=== PATIENT | female | born 1950 | race Caucasian/White ===

== ENCOUNTER 2019-12-03 16:40 | Emergency (ER) | payer BC, SELFPAY ==
[2019-12-03 16:46] VITALS: BP 130/62; PULSE 72; RESP 20; TEMP 37.1; O2SAT 95
--- NOTE | 2019-12-03 16:58 | ED.URI ---
HPI - URI/Sore Throat General Chief Complaint: Upper Respiratory Infection Stated Complaint: wheezing/cough/chest congestion/fever Time Seen by Provider: 12/03/19 16:58 Source: patient and RN notes reviewed History of Present Illness HPI Narrative: Patient is a 69-year-old female presents the urgent care with complaints of wheezing, chest congestion, cough, fever. Patient states that her symptoms started on and if seem to be worsening. Patient states she has had a history of pneumonia and bronchitis in the past. States that she has had episodes of shortness of breath. Denies any chest pain. States that she has been using ibuprofen and Mucinex without much relief. No other acute complaints. No acute distress noted. Patient had a plan of care. Related Data Home Medications Medication Instructions Recorded Confirmed Vitamin D3 12/03/19 aspirin [Aspir-81] 81 mg PO DAILY 12/03/19 12/03/19 fexofenadine-pseudoephedrine 1 tablet PO QAM PRN 12/03/19 12/03/19 [Kary-D 24 Hour] rosuvastatin 10 mg PO DAILY 12/03/19 12/03/19 sotalol 160 mg PO BID 12/03/19 12/03/19 Allergies Allergy/AdvReac Type Severity Reaction Status Date / Time Penicillins Allergy Unknown Dyspnea / Verified 12/03/19 16:58 SOB prednisone Allergy Unknown Agitated Verified 12/03/19 16:58 Review of Systems Review of Systems: Narrative: CONSTITUTIONAL: Reports a fever EYES: Denies visual changes, redness, or discharge. ENT: Reports of sinus congestion and rhinorrhea CARDIOVASCULAR: Denies chest pain, palpitations, or edema. RESPIRATORY: Reports of cough with intermittent dyspnea and wheezing GASTROINTESTINAL: Denies abdominal pain, nausea, vomiting, or diarrhea. GENITOURINARY: Denies dysuria or hematuria. SKIN: Denies rash or itching. MUSCULOSKELETAL: Denies back pain, joint pain, or myalgia. NEUROLOGIC: Denies headache, numbness, or weakness. [facility] Family History Family History (Updated 11/24/18 @ 15:02 by DOCTOR UNKNOWN) Mother Diabetes mellitus Cerebrovascular accident Family history of malignant neoplasm of ovary Father Family history of chronic obstructive pulmonary disease Other Family history of pancreatic cancer Social History Social History Smoking status: Never smoker Second hand tobacco smoke exposure: No Alcohol intake: current Comments At the time of my signature, I reviewed and agree with the nursing past medical, surgical, social, and family history. There is no relevant family history pertinent to the patient complaint. Exam Narrative: Exam Narrative: GENERAL: This is a well-nourished, well-developed patient, in no apparent distress. HEAD: normocephalic, atraumatic. EYES: PERRL. Sclera clear/white. Vision is grossly intact. EARS: External ears normal, auditory canals clear and without drainage, TMs normal without perforation. Hearing grossly intact. NOSE: External nose normal with no obvious nasal discharge, bilateral erythemic nares with clear rhinorrhea THROAT: Mucous membranes moist, posterior pharynx clear. Moderate postnasal drainage NECK: Neck supple CARDIOVASCULAR: Regular rate and rhythm without murmurs, gallops, or rubs. RESPIRATORY: Bilateral upper expiratory wheezes with diminished bilateral lower lung sounds SKIN: warm, intact with no suspicious lesions or rash, good texture and turgor. NEURO: awake, alert, and oriented to person, place and time. There were no obvious focal neurologic abnormalities. EXTREMITIES: No clubbing, cyanosis, or edema. Course Vital Signs Vital signs: Vital Signs Temperature 98.8 F 12/03/19 16:46 Pulse Rate 72 12/03/19 16:46 Respiratory Rate 20 12/03/19 16:46 Blood Pressure 130/62 12/03/19 16:46 Pulse Oximetry 95 12/03/19 16:46 Temperature 98.8 F 12/03/19 16:46 Pulse Rate 72 12/03/19 16:46 Respiratory Rate 20 12/03/19 16:46 Blood Pressure 130/62 12/03/19 16:46 Pulse Oximetry 95 12/03/19 16:[address] [facility]
== END 2019-12-03 17:22 | disposition home or self-care (01) ==
PROVIDERS: Emergency Provider Nurse Practitioner Family; PCP Family Medicine
DX: J40 Bronchitis, not specified as acute or chronic (principal); I48.91 Unspecified atrial fibrillation; E78.00 Pure hypercholesterolemia, unspecified; Z85.3 Personal history of malignant neoplasm of breast; Z92.21 Personal history of antineoplastic chemotherapy; Z92.3 Personal history of irradiation
CPT/HCPCS: 99213; G0463

== ENCOUNTER 2020-06-23 17:23 | Emergency (ER) | payer BC, SELFPAY ==
--- NOTE | 2020-06-23 17:27 | ED.EAR ---
HPI - Ear Problem General Chief complaint: Upper Respiratory Infection Stated complaint: dizziness/ear congestion Time Seen by Provider: 06/23/20 17:27 Source: patient and RN notes reviewed History of Present Illness HPI Narrative: Patient is a 69-year-old female who presents the urgent care with complaints of stuffy nose, ear pressure and intermittent dizziness. Patient states is been ongoing for approximately 2 weeks or longer. Patient states she has a history of sinusitis but has not had to have antibiotics for some time. Patient states that her typical Sudafed and Alexandra Pott take care of the symptoms. However patient has been using both without any relief. Patient denies of any known fevers, nausea, vomiting. Patient denies of any productive cough. No other acute complaints. No acute distress noted. Patient will plan of care. Related Data Home Medications Medication Instructions Recorded Confirmed aspirin [Aspir-81] 81 mg PO DAILY 12/03/19 06/23/20 fexofenadine-pseudoephedrine 1 tablet PO QAM PRN 12/03/19 06/23/20 [Kary-D 24 Hour] Vitamin D3 600 mg BYMOUTH DAILY 06/23/20 06/23/20 Allergies Allergy/AdvReac Type Severity Reaction Status Date / Time Penicillins Allergy Unknown Dyspnea / Verified 06/23/20 17:36 SOB Review of Systems Review of Systems: Narrative: CONSTITUTIONAL: Denies fever, chills, or sweats. EYES: Denies visual changes, redness, or discharge. ENT: Reports of nasal congestion, postnasal drainage, rhinorrhea and bilateral ear pressure CARDIOVASCULAR: Denies chest pain, palpitations, or edema. RESPIRATORY: Denies cough or dyspnea. GASTROINTESTINAL: Denies abdominal pain, nausea, vomiting, or diarrhea. GENITOURINARY: Denies dysuria or hematuria. SKIN: Denies rash or itching. MUSCULOSKELETAL: Denies back pain, joint pain, or myalgia. NEUROLOGIC: Reports of intermittent dizziness without headache, weakness or numbness All other systems reviewed are negative, except as documented in HPI. [facility] Social History Social History Smoking status: Never smoker Second hand tobacco smoke exposure: No Alcohol intake: current Substance use: never Substance use type: does not use Comments At the time of my signature, I reviewed and agree with the nursing past medical, surgical, social, and family history. There is no relevant family history pertinent to the patient complaint. Exam Narrative: Exam Narrative: GENERAL: This is a well-nourished, well-developed patient, in no apparent distress. HEAD: normocephalic, atraumatic. EYES: PERRL. Sclera clear/white. Vision is grossly intact. EARS: External ears normal, auditory canals clear and without drainage, mild fluid noted behind bilateral TMs without otitis, TMs normal without perforation. Hearing grossly intact. NOSE: External nose normal with no obvious nasal discharge, mild bilateral erythemic nares with clear rhinorrhea. THROAT: Mucous membranes moist, moderate postnasal drainage noted posterior oropharynx without erythema or edema NECK: Neck supple CARDIOVASCULAR: Regular rate and rhythm without murmurs, gallops, or rubs. RESPIRATORY: Clear to auscultation. Breath sounds equal bilaterally. No wheezes, rales, or rhonchi. SKIN: warm, intact with no suspicious lesions or rash, good texture and turgor. NEURO: awake, alert, and oriented to person, place and time. There were no obvious focal neurologic abnormalities. EXTREMITIES: No clubbing, cyanosis, or edema. Course Vital Signs Vital signs: Vital Signs Temperature 97.1 F L 06/23/20 17:39 Pulse Rate 59 L 06/23/20 17:39 Respiratory Rate 16 06/23/20 17:39 Blood Pressure 122/65 06/23/20 17:39 Pulse Oximetry 100 06/23/20 17:39 Temperature 97.1 F L 06/23/20 17:39 Pulse Rate 59 L 06/23/20 17:39 Respiratory Rate 16 06/23/20 17:39 Blood Pressure 122/65 06/23/20 17:39 Pulse Oximetry 100 06/23/20 17:39 Reviewed
[2020-06-23 17:39] VITALS: BP 122/65; PULSE 59; RESP 16; TEMP 36.2; O2SAT 100
== END 2020-06-23 17:48 | disposition home or self-care (01) ==
PROVIDERS: Emergency Provider Nurse Practitioner Family; PCP Family Medicine
DX: J32.9 Chronic sinusitis, unspecified (principal); I48.91 Unspecified atrial fibrillation; E78.00 Pure hypercholesterolemia, unspecified; Z85.3 Personal history of malignant neoplasm of breast; Z92.21 Personal history of antineoplastic chemotherapy; Z92.3 Personal history of irradiation
CPT/HCPCS: 99213; G0463

== ENCOUNTER → 2021-03-28 02:06 | Outpatient (CLI) | payer BC, SELFPAY ==
[2021-03-28 19:56] LABS: SARS-CoV-2 RNA PCR Negative
== END ==
PROVIDERS: PCP Family Medicine; Visit Provider Internal Medicine Gastroenterology
DX: Z01.812 Encounter for preprocedural laboratory examination (principal); Z20.822 Contact with and (suspected) exposure to COVID-19
CPT/HCPCS: C9803; U0003; U0005

== ENCOUNTER 2021-04-01 02:40 | Day surgery (SDC) | payer BC, SELFPAY ==
[2021-03-20 14:19] VITALS: BMI 29.6
[2021-04-01 07:52] VITALS: BP 129/67; PULSE 82; RESP 16; TEMP 36.2; O2SAT 97; BMI 29.9
--- NOTE | 2021-04-01 07:58 | PM.HPGS ---
History of Present Illness History of Present Illness Consent: Risks, benefits, and alternatives have been discussed and questions answered. Patient agrees to proceed with procedure. Chief complaint: neoplasm screening Narrative: Melissa Nino is a 70 year old female referred for colon cancer screening Review of Systems Review of Systems: All systems reviewed & are unremarkable except as noted in HPI and below PMFSH Past Medical History Medical History Anxiety Breast cancer Depression Dyslipidemia Environmental allergies History of left breast cancer 2001 - lumpectomy, chemo and radiation therapy SARTHAK (obstructive sleep apnea) Paroxysmal atrial fibrillation Psoriasis Vitamin D deficiency Surgical History Surgical History History of 1980, 1982, 1984 History of cholecystectomy 02/2012 History of lumpectomy of left breast 07/2002 Family History Family History Mother Diabetes mellitus Cerebrovascular accident Family history of malignant neoplasm of ovary Father Family history of chronic obstructive pulmonary disease Other Family history of pancreatic cancer Social History Social History Smoking status: Never smoker Second hand tobacco smoke exposure: No Alcohol intake: current Drinks per week: 1 Substance use: never Substance use type: does not use Living arrangements: with family Gender identity (if verbalized by the patient): Female Spiritual care concerns: No Meds Home Medications and Allergies Home Medications Medication Instructions Recorded Confirmed Type aspirin 81 mg chewable tablet 81 mg PO DAILY 07/28/20 04/01/21 History sertraline 50 mg tablet See Rx Instructions .ROUTE 12/03/20 04/01/21 Rx .COMPLEX #90 tablet fexofenadine 180 mg tablet 180 mg PO DAILY 02/04/21 04/01/21 History fluticasone propionate 50 2 spray INTRANASAL DAILY 02/04/21 04/01/21 History mcg/actuation nasal spray,suspension sotalol 160 mg tablet See Rx Instructions .ROUTE 02/04/21 04/01/21 Rx .COMPLEX #180 tablet rosuvastatin 10 mg tablet See Rx Instructions .ROUTE 03/02/21 04/01/21 Rx .COMPLEX #90 tablet sodium,potassium,mag sulfates 17.5 See Rx Instructions PO .COMPLEX 03/13/21 04/01/21 Rx gram-3.13 gram-1.6 gram oral soln #354 ml Allergies Allergy/AdvReac Type Severity Reaction Status Date / Time Penicillins Allergy Unknown Dyspnea / Verified 04/01/21 07:50 SOB Vital Signs Vital Signs - 24 hr 04/01/21 07:52 Temperature 36.2 C L Pulse Rate 82 Respiratory Rate 16 Blood Pressure 129/67 Pulse Oximetry 97 Exam Const: General: alert Orientation/consciousness: patient oriented x3 Resp: Auscultation: clear to auscultation bilaterally Cardio: Rhythm: regular rhythm GI: GI Palp: Yes Soft to palpation and No Tenderness to palpation present (GI) Neuro: General: patient oriented x3 Assessment and Plan Assessment and plan (1) Colon cancer screening: Code(s): Z12.11 - Encounter for screening for malignant neoplasm of colon Status: Acute Assessment and Plan: Colonoscopy with possible biopsy or polypectomy or cautery or injection of substances.
[2021-04-01] MEDS: LACTATED RINGERS 1,000 ML 150 ML IV CONT (08:00)
--- NOTE | 2021-04-01 08:11 | WPDANESEPPF ---
Anes - Initial Pre Proc Eval Procedure: Operation Date: 04/01/21 08:30 Proposed Procedures p Screening Colonoscopy - Freddy Laguna MD Date/Time: 04/01/21 08:11 Surgeon: Freddy Laguna MD Pre Op Diagnosis: neoplasm screening Patient Data Age: 70 Gender: F Height: 5 ft 9 in Weight: 91.9 kg Last Vital Signs Temp 97.1 F L 04/01/21 07:52 Pulse 82 04/01/21 07:52 Resp 16 04/01/21 07:52 BP 129/67 04/01/21 07:52 Pulse Ox 97 04/01/21 07:52 Allergies Allergy/AdvReac Type Severity Reaction Status Date / Time Penicillins Allergy Unknown Dyspnea / Verified 04/01/21 07:50 SOB Home Medications Medication Instructions Recorded Confirmed Type aspirin 81 mg chewable tablet 81 mg PO DAILY 07/28/20 04/01/21 History sertraline 50 mg tablet See Rx Instructions .ROUTE 12/03/20 04/01/21 Rx .COMPLEX #90 tablet fexofenadine 180 mg tablet 180 mg PO DAILY 02/04/21 04/01/21 History fluticasone propionate 50 2 spray INTRANASAL DAILY 02/04/21 04/01/21 History mcg/actuation nasal spray,suspension sotalol 160 mg tablet See Rx Instructions .ROUTE 02/04/21 04/01/21 Rx .COMPLEX #180 tablet rosuvastatin 10 mg tablet See Rx Instructions .ROUTE 03/02/21 04/01/21 Rx .COMPLEX #90 tablet sodium,potassium,mag sulfates 17.5 See Rx Instructions PO .COMPLEX 03/13/21 04/01/21 Rx gram-3.13 gram-1.6 gram oral soln #354 ml Patient hx anesthesia problems: none Family hx anesthesia problems: none PMFSH Past Medical History Medical History Anxiety Breast cancer Depression Dyslipidemia Environmental allergies History of left breast cancer 2001 - lumpectomy, chemo and radiation therapy SARTHAK (obstructive sleep apnea) Paroxysmal atrial fibrillation Psoriasis Vitamin D deficiency Surgical History Surgical History History of 1980, 1982, 1984 History of cholecystectomy 02/2012 History of lumpectomy of left breast 07/2002 Family History Family History Mother Diabetes mellitus Cerebrovascular accident Family history of malignant neoplasm of ovary Father Family history of chronic obstructive pulmonary disease Other Family history of pancreatic cancer Social History Social History Smoking status: Never smoker Second hand tobacco smoke exposure: No Alcohol intake: current Drinks per week: 1 Substance use: never Substance use type: does not use Living arrangements: with family Gender identity (if verbalized by the patient): Female Spiritual care concerns: No Anes - Eval Final PreProcedure Day of Procedure 04/01/21 08:11 Patient weight: normal Heart: regular rate and rhythm Lungs: clear to auscultation Airway: Mallampati scale class III Neurological: alert and oriented Last oral intake: >/= 8 hours ASA classification: III Emergent: no Anesthetic plan: proceed Anesthesia type and monitoring: general GIVS and standard monitoring Informed Consent: The patient's anesthetic plan and its attendant risks and benefits were discussed with the patient/family/POA. Questions were solicited and answers provided to the satisfaction of the patient/family/POA.
[2021-04-01] MEDS: SIMETHICONE ORAL SUSPENSION 20 MG/0.3 ML 30 ML BOTTLE 0.6 ML IRRIGATION (08:48)
[2021-04-01 09:04] VITALS: BP 104/45; PULSE 63; RESP 16; O2SAT 95
[2021-04-01 09:14] VITALS: BP 88/44; PULSE 64; RESP 25; O2SAT 95
[2021-04-01 09:24] VITALS: BP 104/65; PULSE 70; RESP 22; O2SAT 96
== END 2021-04-01 09:55 | disposition home or self-care (01) ==
PROVIDERS: PCP Family Medicine; Visit Provider Internal Medicine Gastroenterology
PROC: 0DJD8ZZ Inspection of Lower Intestinal Tract, Via Natural or Artificial Opening Endoscopic (ICD-10-PCS; CPT 45378; principal; 2021-04-01 08:30)
DX: Z12.11 Encounter for screening for malignant neoplasm of colon (principal); K60.2 Anal fissure, unspecified; D12.2 Benign neoplasm of ascending colon; I48.0 Paroxysmal atrial fibrillation; E78.5 Hyperlipidemia, unspecified; G47.33 Obstructive sleep apnea (adult) (pediatric); E55.9 Vitamin D deficiency, unspecified; L40.9 Psoriasis, unspecified; F41.8 Other specified anxiety disorders; Z85.3 Personal history of malignant neoplasm of breast; Z79.82 Long term (current) use of aspirin; Z92.21 Personal history of antineoplastic chemotherapy; Z92.3 Personal history of irradiation
CPT/HCPCS: 45380; 88305; J2704; J7120

== ENCOUNTER 2021-05-14 10:21 | Outpatient (CLI) | payer BC, SELFPAY ==
--- NOTE | ~2021-05-14 | DEXA_ITS ---
Bone Density Report Name: Melissa Nino Age: 70 Sex: Female Ethnicity: White Date of : 1950 Indication: postmenopausal; cancer; Referring Provider: Marco A Alvarez Study: Bone densitometry was performed. Exam Date: May 14, 2021 Accession number: [id number] Bone Density: Region BMD T-score Z-score Classification AP Spine (L1, L2, L3) 0.992 -0.2 1.7 Normal Femoral Neck (Left) 0.640 -1.9 -0.2 Osteopenia Total Hip (Left) 0.854 -0.7 0.7 Normal Total Hip Bilateral Avg 0.858 -0.7 0.7 Normal Femoral Neck (Right) 0.634 -1.9 -0.2 Osteopenia Total Hip (Right) 0.861 -0.7 0.7 Normal World Health Organization criteria for BMD impression classify patients as: Normal (T-score at or above -1.0), Osteopenia (T-score between -1.0 and -2.5), or Osteoporosis (T-score at or below -2.5). 10-year Fracture Risk(1): Major Osteoporotic Fracture 11% Hip Fracture 1.8% Reported Risk Factors: [place] (), Neck BMD=0.634, BMI=30.0 (1) FRAX(R) Version 3.08. Fracture probability calculated for an untreated patient. Fracture probability may be lower if the patient has received treatment. Previous Exams: Region Exam Age BMD T-score BMD Change BMD Change Date g/cm2 vs Baseline vs Previous AP Spine(L1, L2, L3) 05/14/2021 70 0.992 -0.2 0.026(2.7%)# 0.026(2.7%)* 08/10/2016 65 0.966 -0.5 0.000(0.0%)# 0.016(1.7%)# 06/16/2009 58 0.950 -0.6 -0.016(-1.7%) -0.016(-1.7%) 10/18/2005 54 0.966 -0.5 Total Hip(Left) 05/14/2021 70 0.854 -0.7 0.095(12.5%)# 0.011(1.3%) 08/10/2016 65 0.844 -0.8 0.084(11.1%)# 0.079(10.4%)# 06/16/2009 58 0.764 -1.5 0.005(0.7%) 0.005(0.7%) 10/18/2005 54 0.759 -1.5 Total Hip(Right) 05/14/2021 70 0.861 -0.7 0.050(6.2%)# -0.006(-0.7%) 08/10/2016 65 0.866 -0.6 0.056(6.9%)# 0.069(8.6%)# 06/16/2009 58 0.798 -1.2 -0.013(-1.6%) -0.013(-1.6%) 10/18/2005 54 0.811 -1.1 *Denotes significance at 95% confidence level, LSC for AP Spine = 0.022 g/cm2, LSC for Total Hip = 0.027 g/cm2 Clinical Information Provided by Patient: Has used the following medications: Vitamin D Has the following medical conditions: Cancer Patient maximum height was 68.5 Menopause Age: 52 Drinks caffeinated beverages Onset of menses at age 11 Number of children 3 Impression: The patient has low bone mass, based on the Left Femoral Neck T-score. The patient has an estimated ten
--- NOTE | ~2021-05-14 | MM_ITS ---
EXAMINATION: MM screening ryan BI w tato HISTORY: Screening mammogram, history of left breast cancer TECHNIQUE: Craniocaudal and mediolateral oblique 3-D tomosynthesis images were obtained and synthetic 2-D images were generated. CAD analysis was submitted and interpreted. COMPARISON: 08/10/2016, 06/16/2009 BREAST PARENCHYMAL COMPOSITION: There are scattered areas of fibroglandular density. FINDINGS: There are changes in the left breast. There is no evidence of suspicious mass, calcificatio n, or architectural distortion to suggest malignancy in either breast. There has been no suspicious i nterval change. IMPRESSION: 1. No mammographic evidence of malignancy. 2. Recommend routine screening mammography in one year. BI-RADS Category 2: Benign finding(s). Reviewed, dictated and finalized at location A.
== END 2021-05-14 10:22 | disposition home or self-care (01) ==
LOC: ANHIMG 10:25
PROVIDERS: PCP Family Medicine; Visit Provider Family Medicine
DX: Z12.31 Encounter for screening mammogram for malignant neoplasm of breast (principal); Z78.0 Asymptomatic menopausal state; M85.852 Other specified disorders of bone density and structure, left thigh; M85.851 Other specified disorders of bone density and structure, right thigh
CPT/HCPCS: 77063; 77067; 77080

== ENCOUNTER → 2021-07-07 09:37 | Outpatient (CLI) | payer BC, SELFPAY ==
[2021-07-08 15:30] LABS: SARS-CoV-2 RNA PCR Negative
== END ==
PROVIDERS: PCP Family Medicine; Visit Provider Family Medicine
DX: R68.89 Other general symptoms and signs (principal); Z20.822 Contact with and (suspected) exposure to COVID-19
CPT/HCPCS: C9803; U0003; U0005

== ENCOUNTER 2022-01-14 09:57 | Day surgery (SDC) | payer BC, SELFPAY ==
[2022-01-14] VITALS (11 sets, daily range): BP systolic 100–157; BP diastolic 49–84; PULSE 50–88; RESP 12–18; TEMP 36.6–36.9; O2SAT 95–100
--- NOTE | ~2022-01-14 | CT_ITS ---
EXAMINATION: CT abdomen pelvis w con INDICATION: Right lower quadrant TECHNIQUE: Computed tomographic images of the abdomen and pelvis were obtained after the administrati on of 100 cc of Omnipaque 350 intravenous contrast. The dose-length product (DLP) was 858.89 mGy-cm. Automated exposure control and iterative reconstruction technique were employed. COMPARISON: None available FINDINGS: Minimal dependent atelectasis is present in the lung bases. The heart size is The liver is diffusely low in attenuation when compared with the spleen, consistent with hepatic stea tosis. There is a 7 mm cyst of the left hepatic lobe. The gallbladder is surgically absent. There is mild enlargement of the common bile duct and central intrahepatic ducts which is likely due to post c holecystectomy state. The spleen, pancreas, and adrenal glands are normal. Cysts of the kidneys measu re up to 1.5 cm on the left. There is calcified atherosclerosis of the aorta and many of the other ar teries. The dilated appendix measures up to 1.6 cm. There is an appendicolith in the appendix. There is edematous stranding of the periappendiceal fat without evidence of perforation or abscess. There i s severe lumbar spondylosis at L4-5. IMPRESSION: 1. Acute appendicitis. These findings were discussed with Dr. Kartik Vega MD in the Emergency Department at 1139 hours on 01/14/2022. Reviewed, dictated and finalized at location B. SER TENDER
[2022-01-14 10:29] LABS: Basophils Absolute Auto 0.1 K/mm3 (0.0-0.1); Basophils Percent Auto 0.5 % (0.2-1.2); Eosinophils Absolute Auto 0.9 K/mm3 (0-0.3); Eosinophils Percent Auto 5.8 % (0-4.4); Hematocrit 45.8 % (37.0-47.0); Hemoglobin 15.4 g/dL (12.0-15.0); Immature Granulocyte Absolute 0.06 K/mm3 (0.00-0.031); Immature Granulocyte Percent A 0.4 % (0-0.5); Lymphocytes Absolute Auto 1.63 K/mm3 (0.9-3.2); Lymphocytes Percent Auto 11.1 % (18.3-44.2); Mean Corpuscular HGB Conc 33.6 g/dl (32-36); Mean Corpuscular Hemoglobin 30.3 pg (26-34); Mean Platelet Volume 10.8 fl (7.4-10.4); Monocytes Absolute Auto 0.7 K/mm3 (0.1-0.6); Monocytes Percent Auto 4.8 % (2.6-8.5); Neutrophils Absolute Auto 11.4 K/mm3 (1.3-6.7); Neutrophils Percent Auto 77.4 % (45.5-73.1); Platelet Count Result 253 k/mm3 (150-375); Red Blood Count 5.09 M/mm3 (4.2-5.4); Red Cell Distribution Width 12.7 % (11.5-14.5); White Blood Count 14.8 K/mm3 (4.5-10.0)
[2022-01-14 10:38] LABS: Alanine Aminotransferase 30 U/L (4-35); Albumin Level 4.8 g/dL (3.5-5.1); Alkaline Phosphatase 67 U/L (38-126); Anion Gap 8 mmol/L (8-16); Aspartate Amino Transferase 31 U/L (14-36); Bilirubin,Total 1.5 mg/dL (0.2-1.3); Blood Urea Nitrogen 16 mg/dL (7-17); Calcium 9.4 mg/dL (8.4-10.2); Carbon Dioxide 29 mmol/L (22-30); Chloride 103 mmol/L (98-107); Estimated CRCL calculation 64 ml/min; Estimated Glomerular Filt Rate > 60; Glucose 124 mg/dL (65-110); Lipase 74 U/L (23-300); Potassium 4.7 mmol/L (3.4-5.0); Sodium 140 mmol/L (137-145)
[2022-01-14 10:48] LABS: Add Urine Microscopic? YES; Appearance Urine Clear (Clear); Bilirubin Urine Negative (Negative); Blood Urine 1+ (Negative); Color Urine Yellow (Yellow); Glucose Urine UA Negative (Negative); Ketones Urine Negative (Negative); Leukocyte Esterase Ur Negative LEU/UL (Negative); Mucus Urine Rare /lpf; Nitrate Urine Negative (Negative); Protein Urine Negative (Negative); Specific Grav Ur 1.018 (1.001-1.035); Squamous Epithelial Cell Urine Rare /hpf (Few); Urobilinogen Urine Negative mg/dL (<2.0); WBC Urine 0-3 /hpf
[2022-01-14] MEDS: MORPHINE SULFATE (*CRX) 4 MG/ML INJ IV PUSH (11:17)
--- NOTE | 2022-01-14 11:21 | PC.NURSE ---
PT went to CT.
--- NOTE | 2022-01-14 11:55 | ED.ABDPAIN ---
HPI - Abdominal Pain General Chief Complaint: Abdominal Pain Stated Complaint: abd pain Time Seen by Provider: 01/14/22 10:26 History of Present Illness HPI narrative: Patient is a 71-year-old female who presents to the ER with right lower quadrant abdominal pain. Reports last night for going to bed she felt like she was having some stomach fullness and she needed to pass gas. She woke up this morning and she has been having sharp pain right lower quadrant. Worse with any type of movement. No fevers or chills or sweats. No diarrhea. Denies urinary symptoms. No history of diverticulitis. Related Data Home Medications Medication Instructions Recorded Confirmed aspirin 81 mg chewable tablet 81 mg PO DAILY 07/28/20 01/14/22 fexofenadine 180 mg tablet 180 mg PO DAILY 02/04/21 01/14/22 fluticasone propionate 50 2 spray INTRANASAL DAILY 02/04/21 01/14/22 mcg/actuation nasal spray,suspension calcium carbonate 500 mg PO BID 01/14/22 01/14/22 Allergies Allergy/AdvReac Type Severity Reaction Status Date / Time Penicillins Allergy Unknown Dyspnea / Verified 01/14/22 09:30 SOB Review of Systems Review of Systems: All systems reviewed & are unremarkable except as noted in HPI and below Constitutional: Constitutional: Denies chills, Denies fever(s) and Denies weakness ENT: Denies nasal congestion and Denies sore throat Respiratory: Respiratory: Denies cough, Denies dyspnea and Denies wheezing Gastrointestinal: Gastrointestinal: Reports abdominal pain, Reports bloating, Denies constipation, Denies nausea and Denies vomiting Genitourinary: Genitourinary: Denies nocturia, Denies dysuria and Denies flank pain Musculoskeletal: Musculoskeletal: Denies back pain and Denies muscle cramps PMFSH Past Medical History Medical History Anxiety Breast cancer s/p left lumpectomy, RT, chemotherapy Depression Dyslipidemia Environmental allergies History of left breast cancer 2001 - lumpectomy, chemo and radiation therapy SARTHAK (obstructive sleep apnea) Osteopenia Paroxysmal atrial fibrillation Psoriasis Vitamin D deficiency Surgical History Surgical History History of 1980, 1982, 1984 History of cholecystectomy 02/2012 History of lumpectomy of left breast 07/2002 Family History Family History Mother Diabetes mellitus Cerebrovascular accident Family history of malignant neoplasm of ovary Father Family history of chronic obstructive pulmonary disease Other Family history of pancreatic cancer Social History Social History Second hand tobacco smoke exposure: No Alcohol intake: current Drinks per week: 1 Alcohol use details: consumes 3 glasses of wine weekly Substance use: never Substance use type: does not use Gender identity (if verbalized by the patient): Female Spiritual care concerns: No Exam Narrative: GENERAL: Well-appearing, obese, and in no acute distress. HEAD: Normocephalic, atraumatic. ENT: Mucous membranes moist. CHEST: Clear to auscultation. No respiratory distress. HEART: Regular rate and rhythm. Normal peripheral pulses. ABDOMEN: Soft, tender palpation right lower quadrant with guarding, nondistended, normal active bowel sounds. EXTREMITIES: Normal range of motion. No edema. SKIN: Warm, dry, no rash. NEURO: Alert and oriented x3. PSYCH: Normal mood and affect. Course Course Emergency Course: discussed with surgery, will give cipro, to OR today. Vital Signs Vital signs: Vital Signs Temperature 98.5 F 01/14/22 10:04 Pulse Rate 55 L 01/14/22 10:04 Respiratory Rate 18 01/14/22 10:04 Blood Pressure 116/64 01/14/22 10:04 Pulse Oximetry 98 01/14/22 10:04 Temperature 98.1 F 01/14/22 16:05 Pulse Rate 54 L
--- NOTE | 2022-01-14 11:57 | ECG_ITS ---
Measurements Intervals [place] Rate: 50 P: 90 MD: 188 QRS: 34 QRSD: 81 T: 92 QT: 449 QTc: 411 Interpretive Statements SINUS BRADYCARDIA NONSPECIFIC ST & T-WAVE ABNORMALITY BORDERLINE ECG NO PREVIOUS ECG AVAILABLE FOR COMPARISON Electronically Signed On 01-14-2022 14:15:50 MECH[employer]ICAL DESIGNER by Clyde Hassan M.D.
[2022-01-14] MEDS: CIPROFLOXACIN 400 MG/D5W 200ML 200 ML 200 MG IVPB (12:47)
--- NOTE | 2022-01-14 13:19 | PM.IMHP ---
H&P: HPI History of Present Illness Date/Time: 01/14/22 13:19 Chief Complaint: RLQ abdominal pain Narrative: This is a 71-year-old female with a history of paroxysmal atrial fibrillation on Sotalol, SARTHAK, and psoriasis, who we have been asked to evaluate for acute appendicitis. The patient reports having an onset of generalized mild cramping abdominal pain around 10pm last night. Around 3am her pain intensified and began localizing in the RLQ. She reports nausea, but no vomiting. Denies fever or chills. Due to the unrelenting pain, she presented to the Er for evaluation. CT scan of the abdomen and pelvis showed findings of acute appendicitis with an appendicolith in the appendix. No evidence of abscess or perforation. Labs showed a WBC count 14,800. Our service was consulted by the ED physician. She is now seen in the ER. She is still having RLQ abd pain without much relief from analgesics so far. Pain is aggravated by movement and walking. She is still feeling nauseous, but no other complaints. She has not had anything to eat or drink since yesterday. Previous abdominal surgeries include a laparoscopic cholecystectomy approximately 10 years ago and 3 previous deliveries. She also holds a history of breast cancer about 20 years ago and underwent a left lumpectomy, radiation therapy, and chemotherapy. Review of Systems Review of Systems: All systems reviewed & are unremarkable except as noted in HPI and below Constitutional: Constitutional: Reports as per HPI, Denies chills, Denies fatigue and Denies fever(s) Eyes: Eyes: Reports no additional eye complaints ENT: Reports system reviewed and no additional complaints, except as documented Cardiovascular: Cardiovascular: Reports no additional cardiovascular complaints, Denies chest pain and Denies leg edema Respiratory: Respiratory: Reports no additional respiratory complaints, Denies cough and Denies dyspnea Gastrointestinal: Gastrointestinal: Reports as per HPI, Reports no additional gastrointestinal complaints, Reports abdominal pain, Denies change in bowel habits, Denies change in stool character, Reports nausea and Denies vomiting Genitourinary: Genitourinary: Reports no additional female genitourinary complaints and Denies dysuria Musculoskeletal: Musculoskeletal: Denies deformity and Denies joint swelling Integumentary/Breasts: Skin/Breast: Denies wounds Neurologic: Reports system reviewed and no additional complaints, except as documented, Denies dizziness, Denies focal weakness, Denies numbness and Denies tingling PMFSH Past Medical History Medical History Anxiety Breast cancer s/p left lumpectomy, RT, chemotherapy Depression Dyslipidemia Environmental allergies History of left breast cancer 2001 - lumpectomy, chemo and radiation therapy SARTHAK (obstructive sleep apnea) Osteopenia Paroxysmal atrial fibrillation Psoriasis Vitamin D deficiency Surgical History Surgical History History of 1980, 1982, 1984 History of cholecystectomy 02/2012 History of lumpectomy of left breast 07/2002 Family History Family History Mother Diabetes mellitus Cerebrovascular accident Family history of malignant neoplasm of ovary Father Family history of chronic obstructive pulmonary disease Other Family history of pancreatic cancer Social History Social History Second hand tobacco smoke exposure: No Alcohol intake: current Drinks per week: 1 Alcohol use details: consumes 3 glasses of wine weekly Substance use: never Substance use type: does not use Gender identity (if verbalized by the patient): Female Spiritual care concerns: No Meds Home Medications and Allergies Home Medications Medication Instructions
[2022-01-14] MEDS: LACTATED RINGERS 1,000 ML 30 ML IV CONT (13:37)
--- NOTE | 2022-01-14 14:10 | WPDHPUPDATE1 ---
History and Physical Update Update Date/Time: 01/14/22 14:10 History and Physical has been reviewed, including an updated exam of the patient. There are NO changes in the patient's condition. Risks, benefits, and alternatives have been discussed and questions answered. Patient agrees to proceed with procedure.
--- NOTE | 2022-01-14 14:31 | WPDANESEPPF ---
Anes - Initial Pre Proc Eval Procedure: Operation Date: 01/14/22 16:00 Proposed Procedures p Laparoscopic Appendectomy - Aranza Obrien MD Date/Time: 01/14/22 14:31 Surgeon: Aranza Obrien MD Pre Op Diagnosis: abd pain Patient Data Age: 71 Gender: F Height: 1.75 m Weight: 95 kg Last Vital Signs Temp 36.6 C 01/14/22 13:22 Pulse 50 L 01/14/22 13:22 Resp 16 01/14/22 13:22 BP 117/56 L 01/14/22 13:22 Pulse Ox 95 01/14/22 13:22 Allergies Allergy/AdvReac Type Severity Reaction Status Date / Time Penicillins Allergy Unknown Dyspnea / Verified 01/14/22 09:30 SOB Home Medications Medication Instructions Recorded Confirmed Type aspirin 81 mg chewable tablet 81 mg PO DAILY 07/28/20 01/14/22 History fexofenadine 180 mg tablet 180 mg PO DAILY 02/04/21 01/14/22 History fluticasone propionate 50 2 spray INTRANASAL DAILY 02/04/21 01/14/22 History mcg/actuation nasal spray,suspension albuterol sulfate 90 mcg/actuation 2 inh INHALATION Q4H PRN #8.5 g 07/22/21 01/14/22 Rx aerosol inhaler clobetasol 0.05 % lotion 1 applic TOPICAL DAILY #118 ml 07/22/21 01/14/22 Rx sotalol 160 mg tablet 160 mg PO BID #180 tablet 07/24/21 01/14/22 Rx sertraline 50 mg tablet 50 mg PO DAILY #90 tablet 08/25/21 01/14/22 Rx rosuvastatin 10 mg tablet 10 mg PO QHS #90 tablet 01/12/22 01/14/22 Rx calcium carbonate [Calcium 500] 500 mg PO BID 01/14/22 01/14/22 History Laboratory Tests 01/14/22 01/14/22 01/14/22 10:19 10:19 10:19 WBC 14.8 K/mm3 H K/mm3 (4.5-10.0) RBC 5.09 M/mm3 M/mm3 (4.2-5.4) Hgb 15.4 g/dL H g/dL (12.0-15.0) Hct 45.8 % % (37.0-47.0) MCV 90.0 fl fl (80-100) MCH 30.3 pg pg (26-34) MCHC 33.6 g/dl g/dl (32-36) RDW 12.7 % % (11.5-14.5) Plt Count 253 k/mm3 k/mm3 (150-375) MPV 10.8 fl H fl (7.4-10.4) Immature Gran % (Auto) 0.4 % % (0-0.5) Neut % (Auto) 77.4 % H % (45.5-73.1) Lymph % (Auto) 11.1 % L % (18.3-44.2) [place] % (Auto) 4.8 % % (2.6-8.5) Eos % (Auto) 5.8 % H % (0-4.4) Baso % (Auto) 0.5 % % (0.2-1.2) Lymph # (Auto) 1.63 K/mm3 K/mm3 (0.9-3.2) [place] # (Auto) 0.7 K/mm3 H K/mm3 (0.1-0.6) Eos # (Auto) 0.9 K/mm3 H K/mm3 (0-0.3) Baso # (Auto) 0.1 K/mm3 K/mm3 (0.0-0.1) Abs Immat Gran (auto) 0.06 K/mm3 H K/mm3 (0.00-0.031) Absolute Neuts (auto) 11.4 K/mm3 H K/mm3 (1.3-6.7) Absolute Nucleated RBC 0.0 K/mm3 K/mm3 (0.0-0.012) Nucleated RBC % 0.0 % % (0.0-0.2) Sodium 140 mmol/L mmol/L (137-145) Potassium 4.7 mmol/L mmol/L (3.4-5.0) Chloride 103 mmol/L mmol/L (98-107) Carbon Dioxide 29 mmol/L mmol/L (22-30) Anion Gap 8 mmol/L mmol/L (8-16) BUN 16 mg/dL mg/dL (7-17) Creatinine 0.90 mg/dL mg/dL (0.7-1.0) Estim Creat Clear Calc 64 ml/min ml/min Estimated GFR > 60 (59 - ) Glucose 124 mg/dL H mg/dL (65-110) Calcium 9.4 mg/dL mg/dL (8.4-10.2) Total Bilirubin 1.5 mg/dL H mg/dL (0.2-1.3) AST 31 U/L U/L (14-36) ALT 30 U/L U/L (4-35) Alkaline Phosphatase 67 U/L U/L (38-126) Total Protein 8.0 g/dL g/dL (6.3-8.2) Albumin 4.8 g/dL g/dL (3.5-5.1) Lipase 74 U/L U/L (23-300) Urine Color Yellow (Yellow) Urine Appearance Clear (Clear) Urine pH 5.0 (5.0-9.0) Ur Specific [place] 1.018 (1.001-1.035) Urine Protein Negative mg/dL mg/dL (Negative) Urine Glucose (UA) Negative mg/dL mg/dL (Negative) Urine Ketones Negative mg/dL mg/dL (Negative) Ur Blood (Man) 1+ H (Negative) Urine Nitrate Negative (Negative) Urine Bilirubin Neg
[2022-01-14] MEDS: BUPIVACAINE/EPINEPHRINE 0.25% 10 ML VIAL 30 ML INFILTRATE (15:43)
--- NOTE | 2022-01-14 16:02 | W.PM.PROC2 ---
Procedure Note - Detailed Date of Procedure 01/14/22 Pre-op Diagnosis acute appendicitis Post-op Diagnosis Same Procedure Performed laparoscopic appendectomy Surgeon Aranza Obrien MD Anesthesia General Indications 71-year-old female presenting to the emergency department acute appendicitis Findings acute uncomplicated appendicitis with noted fecalith Description of Procedure The patient was taken to the operating room and placed in the supine position. After adequate induction of general anesthesia, the patient was prepped and draped in the normal sterile fashion. A time-out was then done to verify the patient's identity, as well as the procedure being performed. I began by making a 5 mm incision in the infraumbilical region, through this a Veress needle was placed in the peritoneal cavity. CO2 gas was then insufflated and after adequate pneumoperitoneum was achieved the Veress needle was removed. Then placed a 5 mm Optiview trocar under direct visualization into the peritoneal cavity. I then insufflated through this trocar site and the endoscope was placed into the trocar. Under direct visualization, placed 2 further 5 mm suprapubic port as well as an additional 12 mm port in the left lower abdomen. At this point identified the cecum, I retracted the cecum both medially and superiorly allowing me to expose the appendix. The appendix was noted to be very dilated and inflamed throughout and there was a noted fecalith near the base. The appendix was noted to be very adherent to the right lateral sidewall as well as the ileum. I was able to bluntly dissect the appendix from these adhesions. I then was able to locate the base of the appendix with the cecum. I created a window with the [place] dissector between the appendix itself and the mesoappendix. I then transected the mesoappendix with a white vascular staple load. The Endo-RACHEL was then reloaded with a blue staple load and I transected the base of the appendix. Once the specimen was completely detached, an endo-pouch was placed into the 12 mm port site and the specimen was removed through the endo-pouch. The appendiceal specimen will be sent to pathology for further review. I then copiously irrigated the right lower quadrant. Hemostasis was noted at both staple lines no other pathology was seen in this area. I then moved the camera to the suprapubic port to check our its port of entry. No iatrogenic injury or other pathology was noted in the upper abdomen. I then closed the 12 mm port site with a Juan Manuel code and 0 Vicryl suture under direct visualization. At this point, the abdomen was desufflated and all ports were removed. All port sites were closed with 4 Monocryl subcuticular suture. Dermabond was placed on all wounds. The patient tolerated the procedure well and was extubated in the operating room postop. He will be sent to the recovery room in stable condition. Estimated Blood Loss 10 Drains No Packing No Pathology Yes Complications No immediate complications Condition Stable Disposition PACU
[2022-01-14] MEDS: ONDANSETRON INJ 4 MG/2 ML VIAL IV PUSH (17:20)
[2022-01-14] MEDS: oxyCODONE HCL (*CRX) 5 MG TAB IR PO (17:36)
== END 2022-01-14 18:30 | disposition home or self-care (01) ==
LOC: ANHED 10:40 → ANHSURGERY 12:30
PROVIDERS: Emergency Provider Emergency Medicine; PCP Family Medicine; Visit Provider Surgery
PROC: 0DTJ4ZZ Resection of Appendix, Percutaneous Endoscopic Approach (ICD-10-PCS; CPT 44970; principal; 2022-01-14 16:00)
DX: K35.30 Acute appendicitis with localized peritonitis, without perforation or gangrene (principal); Z79.82 Long term (current) use of aspirin; Z79.51 Long term (current) use of inhaled steroids; F41.8 Other specified anxiety disorders; Z85.3 Personal history of malignant neoplasm of breast; Z92.21 Personal history of antineoplastic chemotherapy; G47.33 Obstructive sleep apnea (adult) (pediatric); M19.90 Unspecified osteoarthritis, unspecified site; I48.0 Paroxysmal atrial fibrillation; E55.9 Vitamin D deficiency, unspecified; L40.9 Psoriasis, unspecified; Z90.49 Acquired absence of other specified parts of digestive tract; E66.9 Obesity, unspecified; Z68.30 Body mass index [BMI] 30.0-30.9, adult; R10.31 Right lower quadrant pain
CPT/HCPCS: 44970; 36415; 74177; 80053; 81001; 83690; 85025; 88304; 93005; 96374; 96375; 99285; A9270; J0330; J0744; J1100; J2250; J2270; J2405; J2704; J2710; J3010; J7030; J7120; Q9967

== ENCOUNTER 2023-02-11 15:20 | Outpatient (CLI) | payer BC, SELFPAY ==
[2023-02-11 20:11] LABS: Alanine Aminotransferase 21 U/L (6-35); Albumin Level 4.4 g/dL (3.5-5.1); Alkaline Phosphatase 65 U/L (38-126); Anion Gap 6 mmol/L (8-16); Aspartate Amino Transferase 21 U/L (14-36); Bilirubin,Total 1.2 mg/dL (0.2-1.3); Blood Urea Nitrogen 15 mg/dL (7-17); Calcium 8.7 mg/dL (8.4-10.2); Carbon Dioxide 31 mmol/L (22-30); Chloride 102 mmol/L (98-107); Estimated Glomerular Filt Rate > 60; Glucose 95 mg/dL (65-110); Potassium 4.1 mmol/L (3.4-5.0); Sodium 139 mmol/L (137-145)
== END 2023-02-11 15:21 | disposition home or self-care (01) ==
LOC: ANHGOSHLAB 15:21
PROVIDERS: PCP Family Medicine; Visit Provider Family Medicine
DX: F32.9 Major depressive disorder, single episode, unspecified (principal); E78.5 Hyperlipidemia, unspecified; I48.0 Paroxysmal atrial fibrillation; I10 Essential (primary) hypertension
CPT/HCPCS: 36415; 80053

== ENCOUNTER → 2023-11-08 10:03 | Outpatient (CLI) | payer BC, SELFPAY ==
--- NOTE | ~2023-11-08 | XR_ITS ---
XR chest 2V DATE: 11/08/2023 10:15 INDICATION: Cough TECHNIQUE: PA and lateral views COMPARISON: December 17, 2013 2 view chest FINDINGS: Normal heart size. Thoracic aortic arch calcification. No hilar or mediastinal enlargement. Moderate bilateral hyperinflation. No pulmonary infiltrate or consolidation, pleural effusion or pulm onary vascular congestion or pneumothorax is detected. There is degenerative spurring of the thoracic spine. Status post cholecystectomy. IMPRESSION: Moderate bilateral hyperinflation No active cardiopulmonary disease Reviewed, dictated and finalized at location L. [employer]OR OF [employer]
== END ==
PROVIDERS: PCP Nurse Practitioner Family; Visit Provider Nurse Practitioner Family
DX: R05.9 Cough, unspecified (principal); R91.8 Other nonspecific abnormal finding of lung field
CPT/HCPCS: 71046

== ENCOUNTER 2023-12-16 08:37 | Outpatient (CLI) | payer BC, SELFPAY ==
[2023-12-16 12:15] LABS: Basophils Absolute Auto 0.1 K/mm3 (0.0-0.1); Basophils Percent Auto 0.9 % (0.2-1.2); Eosinophils Absolute Auto 1.1 K/mm3 (0-0.3); Eosinophils Percent Auto 13.1 % (0-4.4); Hematocrit 48.3 % (37.0-47.0); Hemoglobin 15.1 g/dL (12.0-15.0); Immature Granulocyte Absolute 0.03 K/mm3 (0.00-0.031); Immature Granulocyte Percent A 0.3 % (0-0.5); Lymphocytes Absolute Auto 1.78 K/mm3 (0.9-3.2); Lymphocytes Percent Auto 20.7 % (18.3-44.2); Mean Corpuscular HGB Conc 31.3 g/dl (32-36); Mean Corpuscular Hemoglobin 29.4 pg (26-34); Mean Corpuscular Volume 94.2 fl (80-100); Mean Platelet Volume 11.6 fl (7.4-10.4); Monocytes Absolute Auto 0.6 K/mm3 (0.1-0.6); Monocytes Percent Auto 6.5 % (2.6-8.5); Neutrophils Percent Auto 58.5 % (45.5-73.1); Platelet Count Result 205 k/mm3 (150-375); Red Blood Count 5.13 M/mm3 (4.2-5.4); Red Cell Distribution Width 12.9 % (11.5-14.5); White Blood Count 8.6 K/mm3 (4.5-10.0)
[2023-12-16 12:26] LABS: Alanine Aminotransferase 23 U/L (6-35); Albumin Level 4.6 g/dL (3.5-5.1); Alkaline Phosphatase 55 U/L (38-126); Anion Gap 7 mmol/L (8-16); Aspartate Amino Transferase 45 U/L (14-36); Bilirubin,Total 1.7 mg/dL (0.2-1.3); Blood Urea Nitrogen 16 mg/dL (7-17); Calcium 9.7 mg/dL (8.4-10.2); Carbon Dioxide 30 mmol/L (22-30); Chloride 106 mmol/L (98-107); Cholesterol 170 mg/dL (0-200); Estimated Glomerular Filt Rate > 60; Glucose 88 mg/dL (65-110); HDL Direct 46 mg/dL; Potassium 4.7 mmol/L (3.4-5.0); Sodium 143 mmol/L (137-145); Triglycerides 135 mg/dL (<150)
[2023-12-16 12:44] LABS: LDL Cholesterol Direct 89 mg/dL
[2023-12-16 12:57] LABS: Hemoglobin A1C 5.7 % (<5.7)
[2023-12-16 13:16] LABS: Vitamin D 25 Hydroxy 54.3 ng/mL
== END 2023-12-16 08:38 | disposition home or self-care (01) ==
LOC: ANHGOSHLAB 08:38
PROVIDERS: PCP Nurse Practitioner Family; Visit Provider Nurse Practitioner Family
DX: Z00.00 Encounter for general adult medical examination without abnormal findings (principal); Z13.1 Encounter for screening for diabetes mellitus; E55.9 Vitamin D deficiency, unspecified; E78.5 Hyperlipidemia, unspecified
CPT/HCPCS: 36415; 80053; 80061; 82306; 83036; 85025

== ENCOUNTER 2023-12-27 14:32 | Outpatient (CLI) | payer BC, SELFPAY ==
[2023-12-27 20:06] LABS: Alanine Aminotransferase 20 U/L (6-35); Albumin Level 4.5 g/dL (3.5-5.1); Alkaline Phosphatase 65 U/L (38-126); Aspartate Amino Transferase 28 U/L (14-36); Bilirubin,Total 1.4 mg/dL (0.2-1.3)
== END 2023-12-27 14:33 | disposition home or self-care (01) ==
LOC: ANHGOSHLAB 14:34
PROVIDERS: PCP Nurse Practitioner Family; Visit Provider Nurse Practitioner Family
DX: R74.01 Elevation of levels of liver transaminase levels (principal); R17 Unspecified jaundice
CPT/HCPCS: 36415; 80076

== ENCOUNTER 2024-06-15 08:16 | Outpatient (CLI) | payer BC, SELFPAY ==
[2024-06-15 14:00] LABS: Basophils Absolute Auto 0.1 K/mm3 (0.0-0.1); Basophils Percent Auto 0.7 % (0.2-1.2); Eosinophils Absolute Auto 1.3 K/mm3 (0-0.3); Eosinophils Percent Auto 15.4 % (0-4.4); Hematocrit 45.4 % (37.0-47.0); Hemoglobin 14.7 g/dL (12.0-15.0); Immature Granulocyte Absolute 0.02 K/mm3 (0.00-0.031); Immature Granulocyte Percent A 0.2 % (0-0.5); Lymphocytes Absolute Auto 1.68 K/mm3 (0.9-3.2); Lymphocytes Percent Auto 20.6 % (18.3-44.2); Mean Corpuscular HGB Conc 32.4 g/dl (32-36); Mean Corpuscular Hemoglobin 30.1 pg (26-34); Mean Corpuscular Volume 92.8 fl (80-100); Mean Platelet Volume 11.1 fl (7.4-10.4); Monocytes Absolute Auto 0.6 K/mm3 (0.1-0.6); Monocytes Percent Auto 7.7 % (2.6-8.5); Neutrophils Absolute Auto 4.5 K/mm3 (1.3-6.7); Neutrophils Percent Auto 55.4 % (45.5-73.1); Platelet Count Result 232 k/mm3 (150-375); Red Blood Count 4.89 M/mm3 (4.2-5.4); White Blood Count 8.2 K/mm3 (4.5-10.0)
[2024-06-15 20:01] LABS: Hemoglobin A1C 5.7 % (<5.7)
[2024-06-15 21:28] LABS: Alanine Aminotransferase 18 U/L (6-35); Albumin Level 4.7 g/dL (3.5-5.1); Alkaline Phosphatase 61 U/L (38-126); Anion Gap 14 mmol/L (4-12); Aspartate Amino Transferase 42 U/L (14-36); Bilirubin,Total 1.3 mg/dL (0.2-1.3); Blood Urea Nitrogen 20 mg/dL (7-17); Calcium 9.5 mg/dL (8.4-10.2); Carbon Dioxide 24 mmol/L (22-30); Chloride 105 mmol/L (98-107); Cholesterol 137 mg/dL (0-200); Estimated Glomerular Filt Rate > 60; Glucose 68 mg/dL (65-110); HDL Direct 40 mg/dL; Potassium 4.2 mmol/L (3.4-5.0); Sodium 143 mmol/L (137-145); Triglycerides 91 mg/dL (<150)
[2024-06-15 21:42] LABS: LDL Cholesterol Direct 67 mg/dL
[2024-06-15 22:40] LABS: Vitamin B12 > 1000.0 pg/mL (239-931)
[2024-06-20 13:29] LABS: Vitamin D 1,25 (OH)2 Total 39 pg/mL (18-72); Vitamin D2 1,25 (OH)2 <8 pg/mL; Vitamin D3 1,25 (OH)2 39 pg/mL
== END 2024-06-15 08:17 | disposition home or self-care (01) ==
LOC: ANHGOSHLAB 08:17
PROVIDERS: PCP Family Medicine; Visit Provider Nurse Practitioner Family
DX: Z00.00 Encounter for general adult medical examination without abnormal findings (principal); E55.9 Vitamin D deficiency, unspecified; E78.5 Hyperlipidemia, unspecified; F41.9 Anxiety disorder, unspecified; L40.9 Psoriasis, unspecified; R17 Unspecified jaundice; R74.01 Elevation of levels of liver transaminase levels; E03.9 Hypothyroidism, unspecified; R73.03 Prediabetes; E53.8 Deficiency of other specified B group vitamins
CPT/HCPCS: 36415; 80053; 80061; 82607; 82652; 83036; 84443; 85025

== ENCOUNTER 2024-12-14 08:13 | Outpatient (CLI) | payer BC, SELFPAY ==
--- OUTSIDE RECORDS SUMMARY | 2024-12-14 08:21 | XMS_ITS | Referral Summary ---
Author Organization [facility] [address] Address [address] [place] [address] Care Team Providers Care X Ray Nurse Name Role Phone Loren Alvarez MD Primary Care Provider Allergies Active Allergy Reactions Criticality Noted Date Comments Penicillins Unknown 08/24/2017 Medications sotaloL (BETAPACE) 160 mg tablet Take 1 tablet (160 mg total) by mouth 2 (two) times a day Active rosuvastatin (CRESTOR) 10 mg tablet Take 1 tablet (10 mg total) by mouth daily Active sertraline HCl (SERTRALINE ORAL) Take 100 mg by mouth daily Active cholecalciferol (VITAMIN D-3) 2000 unit capsule Take 3 capsules (6,000 Units total) by mouth daily Active aspirin 81 mg enteric coated tablet Take 1 tablet (81 mg total) by mouth daily Active fexofenadine (ELIAS) 180 mg tablet Take 1 tablet (180 mg total) by mouth daily Active calcium carbonate (CALCIUM 600 ORAL) Take 600 mg by mouth 2 (two) times a day Active Active Problems Problem Noted Date Diagnosed Date Paroxysmal atrial fibrillation (CMS/HCC) 019 Social History Tobacco Use Types Packs/Day Years Used Date Smoking Tobacco: Never Smokeless Tobacco: Never Tobacco Cessation:Counseling Given: Not Answered Alcohol Use Standard Drinks/Week Comments Yes 0 (1 standard drink = 0.6 oz pur e alcohol) occassionally Personal Safety Answer Date Recorded Getting School Help Needed Not on file 01/05 Comments Unknown Sex and Gender Information Value Date Recorded Sex Assigned at Not on file 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 Gender Identity Female 07/16/2021 7:39 AM CDT Sexual Orientation Straight 07/16/2021 7: 39 AM CDT Last Filed Vital Signs Vital Sign Reading Time Taken Comments Blood Pressure 116/70 07/26/2024 8:51 AM CDT Pulse 63 07/26/2024 8:51 AM CDT Temperature - - Respiratory Rate - - Oxygen Saturation 93% 07/26/2024 8:51 AM CDT Inhaled Oxygen Concentration - - Weight 92.7 kg (204 lb 4.8 oz) 07/26/2024 8:51 A M CDT Height 172.7 cm (5' 8 ) 07/26/2024 8:51 AM CDT Body Mass Index 31.06 07/26/2024 8:51 AM CDT Plan of Treatment Not on file [place] [facility] [place] [facility] [place] Care Teams X Ray Nurse Relationship Specialty Start Date End Date Loren Alvarez MD [address] [facility] [address] [address] PCP - General Family Practice 07/25/24
--- OUTSIDE RECORDS SUMMARY | 2024-12-14 08:21 | XMS_ITS | Clinical Summary ---
Author Organization [facility] [address] Address [address] [place] [address] Care Team Providers Care Research And Development Manager Name Role Phone Loren Alvarez MD Primary [...] Diagnosed Date Paroxysmal atrial fibrillation (CMS/HCC) 019 Surgical History Surgery Date Site/Laterality Comments SECTION BREAST LUMPECTOMY CHOLECYSTECTOMY Medical History Medical History Date Comments Atrial fibrillation (CMS/HCC) (HCC) Anxiety 1969 Cancer (CMS/HCC) (HCC) Breast 2002 Depression 1969 Sleep apnea 2010 Family History Medical History Relation Name Comments COPD Father David Pitts Depression Father David Pitts Cancer Father's Brother Aliza Pitts Cancer Maternal Grandmother Kate Aguilar Cancer Mother Mirella Pitts Diabetes Mother Mirella Pitts Stroke Mother Mirella Pitts Diabetes Paternal Grandmother dIalia Pitts Relation Name Status Comments Father David Pitts Father's Brother Aliza Pitts Maternal Grandmother Kate Aguilar Mother Mirella Pitts Paternal Grandmother Idalia Pitts Social History Tobacco Use Types Packs/Day Years [...] on file 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 Gender Identity Female 07/16/2021 7:39 AM CDT Sexual Orientation Straight 07/16/2021 7: 39 AM CDT Obstetrics History Last Filed Vital Signs Vital Sign Reading [...] 07/26/2024 8:51 AM CDT Plan of Treatment Health Maintenance Due Date Last Done Comments Breast Cancer Screening-Mammogram 1950 Colon Cancer Screening-Colonoscopy 1950 Depression Screening 1950 Fall Risk Assessment 1950 Hepatitis C Screening 1950 Osteoporosis Screening-Bone Density Scan 1950 Well Visit 65+ 2017 Zoster Vaccine (2 of 2) 01/22/2020 11/27/2019 Pneumococcal vaccine 65+ (2 of 2 - PPSV23 or PCV20) 03/09/2020 03/09/2019 Influenza Vaccine (#1) 2024 9, 09/05/2018, 08/30/2017, Additional history exists DTaP/Tdap/Td Vaccine (3 - Td or Tdap) 03/09/2029 03/09/2019, 09/15/2016 [place] Plan / Payer ( fective 2018-Present) Name:Melissa Park Relation to Subscriber:Spouse Name:KRISTYNGOLDIEBERNARDO Date of :1952 (Home) Address: [address] [place] [address] Payer ID:[id number] (NAIC) Type:BC OTHER Address: [facility] [address] [place] [phone] Care Teams Research And Development Manager Relationship Specialty Start Date End Date Loren Alvarez MD [address] [place] [address] [place] [address] PCP - General Family Practice 07/25/24
[2024-12-14 13:57] LABS: Basophils Absolute Auto 0.1 K/mm3 (0.0-0.1); Basophils Percent Auto 0.8 % (0.2-1.2); Eosinophils Percent Auto 10.9 % (0-4.4); Hematocrit 47.4 % (37.0-47.0); Hemoglobin 15.3 g/dL (12.0-15.0); Immature Granulocyte Absolute 0.03 K/mm3 (0.00-0.031); Immature Granulocyte Percent A 0.3 % (0-0.5); Mean Corpuscular HGB Conc 32.3 g/dl (32-36); Mean Corpuscular Hemoglobin 29.2 pg (26-34); Mean Corpuscular Volume 90.5 fl (80-100); Mean Platelet Volume 11.9 fl (7.4-10.4); Monocytes Absolute Auto 0.6 K/mm3 (0.1-0.6); Monocytes Percent Auto 7.1 % (2.6-8.5); Neutrophils Percent Auto 56.9 % (45.5-73.1); Platelet Count Result 187 k/mm3 (150-375); Red Blood Count 5.24 M/mm3 (4.2-5.4); Red Cell Distribution Width 12.7 % (11.5-14.5); White Blood Count 8.7 K/mm3 (4.5-10.0)
[2024-12-14 14:32] LABS: Alanine Aminotransferase 22 U/L (6-35); Albumin Level 4.6 g/dL (3.5-5.1); Alkaline Phosphatase 55 U/L (38-126); Anion Gap 12 mmol/L (4-12); Aspartate Amino Transferase 40 U/L (14-36); Bilirubin,Total 1.5 mg/dL (0.2-1.3); Blood Urea Nitrogen 18 mg/dL (7-17); Calcium 9.6 mg/dL (8.4-10.2); Carbon Dioxide 25 mmol/L (22-30); Chloride 104 mmol/L (98-107); Cholesterol 159 mg/dL (0-200); Estimated Glomerular Filt Rate > 60; Glucose 91 mg/dL (65-110); HDL Direct 46 mg/dL; Sodium 141 mmol/L (137-145); Triglycerides 102 mg/dL (<150)
[2024-12-14 14:43] LABS: LDL Cholesterol Direct 78 mg/dL
[2024-12-14 15:12] LABS: Hemoglobin A1C 5.8 % (<5.7)
== END 2024-12-14 08:14 | disposition home or self-care (01) ==
LOC: ANHGOSHLAB 08:14
PROVIDERS: PCP Family Medicine; Visit Provider Nurse Practitioner Family
DX: E78.5 Hyperlipidemia, unspecified (principal); I10 Essential (primary) hypertension; R73.03 Prediabetes
CPT/HCPCS: 36415; 80053; 80061; 83036; 85025

== ENCOUNTER 2025-05-16 15:47 | Outpatient (CLI) | payer BC, SELFPAY ==
--- OUTSIDE RECORDS SUMMARY | 2025-05-16 15:51 | XMS_ITS | Referral Summary ---
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
--- OUTSIDE RECORDS SUMMARY | 2025-05-16 15:51 | XMS_ITS | Clinical Summary ---
Author Organization [facility] [address] Address [address] [place] [address] Care Team Providers Care Return To Vendor Name Role Phone Loren Alvarez MD Primary [...] Date Diagnosed Date Paroxysmal atrial fibrillation 01/02/2019 Surgical History Surgery Date Site/Laterality Comments SECTION BREAST LUMPECTOMY CHOLECYSTECTOMY Medical History Medical History Date Comments Atrial fibrillation (HCC) Anxiety 1969 Cancer (HCC) Breast 2002 Depression 1969 Sleep apnea 2010 Family History Medical History Relation Name Comments COPD Father David Pitts Depression Father David Pitts Cancer Father's Brother Aliza Farriths Cancer Maternal Grandmother Kate Jeff Cancer Mother Mirellasantiago FarrGisselle Diabetes Mother Mirella Gisselle Stroke Mother Mirellasantiago FarrGisselle Diabetes Paternal Grandmother Idalia Pitts Relation Name Status Comments Father David [...] on file 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 [place] [email or web address] [place] Care Teams Return To Vendor Relationship Specialty Start Date End Date Loren Alvarez MD [address] [place] [address] [address] [place] [id number] PCP - General Family Practice 07/25/24
--- OUTSIDE RECORDS SUMMARY | 2025-05-16 15:51 | XMS_ITS | Data Portability ---
Author Organization [facility] Address [address] [place] [address] [place] [address] Care Team Providers Care Assistant Professor Of Drama Name Role Phone NORRIS MORRIS Primary Care Provider Assessment Encounter Date Assessment Date Assessment LastModified by Organization Details LastModified Time 12/28/2024 12/28/2024 Annual gynecological exam performed. Patient will come back in a year unless there are new symptoms. Not available 12/28/2024 11:12:28 03/05/2025 03/05/2025 Annual gynecological exam performed. Patient will come back in a year unless there are new symptoms. [email or web address] Not available 03/05/2025 17:19:09 Plan of Treatment Reminders Order Date Submit Date Provider Last Modified By Organization Details Last Modified Time Details Appointments None recorded. Lab None recorded. Referral None recorded. Procedures None recorded. Surgeries None recorded. Imaging MAMMO, screening, digital, bilateral [email or web address] [place] [address] - [facility], [address], [address], [place], [address], 5 18:37:41 Medication Orders estradiol 0.01% (0.1 mg/gram) vaginal cream 2024 025 [id number], [address] [place], [address], 16:38:02 Patient TargetsNo targets recorded. Patient InstructionsNo instructions recorded. Reason for Referral None Reported. Results Created Date Observation Date Name Description Value Unit Range Abnormal Flag Note LastModifiedBy Organization Detail LastModifiedTime 12/28/19 25 12/28/2024 IMAGE GUIDE D PAP AND HPV REGAR DLESS image guided Pap, HPV regardless of Pap result SEE RESULT S BELOW CASE REPOR T: Cytol ogy Gynec ologi adeel Repor t Case: [id number] Autho hiram alcaraz Provi christ: Clarke Rodriguez MD Colle cted: 12/28 1154 Order ing Locat ion: [place] Patho logy Recei brittney: 12/29 0121 First Scree n: Phill mujica, Kathie denis, CT Speci men: Scree vera Pap - Image d, Cervi x STATE MENT OF ADEQU ACY: Satis facto ry for evalu ation Trans forma tion zone compo nent canno t be defin itive ly ident ified due to the prese nce of atrop hy or other hormo nal pandey es ----- ----- ----- ----- ----- ----- ----- ----- ----- ----- ----- ----- ----- ----- ----- ----- ----- ---- FINAL DIAGN OSIS: Negat lin for Intra epith elial Lesio la or Anita collins (NIL) . Atrop hic cell noe garcia. Elect sharif crawford by Kathie mujica, CT on 2024 at 1404 FINISH SPECIALIST ----- ----- ----- ----- ----- ----- ----- ----- ----- ----- ----- ----- ----- ----- ----- ----- ----- ---- HPV RESUL TS: HPV mRNA E6/E7 : No HPV mRNA Detec rocky NOTE: This high risk HPV mRNA assay detec ts fourt een high- risk HPV types (16, 18, 31, 33, 35, 39, 45, 51, 52, 56, 58, 59, 66, 68) witho ut diffe renti ation . COMME NT: This speci men was revie wed by a Cytot echno logis t and/o r Patho logis t (as indic ated in this repor t) after evalu ation using the Thinp rep Imagi ng Syste m. CLINI ADEEL INFOR MATIO N: Menst rual Statu s: LMP (if appli cable ): Clini adeel Histo ry/Pr eviou s Pap: Type of Neopl arnold (if appli cable ): Signi fican t Clini adeel Findi ngs: Other Histo ry: Hormo marielena (if appli cable ): PAP EDUCA VERNA L NOTE: The Pap Test is a scree vera test with an inher ent false negat lin rate. Liqui d-bas ed sampl ing may decre ase, but will not elimi yecenia, false negat lin resul ts. A negat lin resul t does not precl ude the prese nce and/o r devel opmen t of disea se, since the prese nce of abnor mal cells in the sampl e depen ds on the locat ion of the lesio n and sampl ing techn ique. Mika nued regul ar scree vera is the best metho d of cance r preve ntion . If repor rocky cytol ogic findi ng do not corre late with physi adeel and/o r histo rical findi ngs, furth er inves tigat ion is recom cheryl d, as clini carmen rea nted. Not Available [facility] (Lab) [address] [facility], [place], [address], 01/01/2025 15:09:30 Result Notes None recorded. Procedures Surgical History Date Name Laterality Status Provider Name and Address Organization Details Recorded Time 11/05/19 85 [facility]al [facility] 12/28/2024 11:04:32 11/07/18 85 Caesarean Section completed Leti [facility] 12/28/2024 11:20:12 11/07/18 84 Caesarean Section completed [facility] 12/28/2024 11:20:04 08/03/19 81 Caesarean Section completed [facility] 12/28/2024 11:04:32 04/19/19 60 Tonsillectomy completed [facility] 12/28/2024 11:04:32 Dilation and Curettage completed [facility] 12/28/2024 11:04:32 Appendectomy completed [facility] 12/28/2024 11:04:32 Cholecystectomy completed [facility] 12/28/2024 11:04:32 Colonoscopy completed [facility] 12/28/2024 11:04:32 Imaging Results None recorded. Procedure Notes None recorded. Medical Equipment None Reported. Allergies Allergen ID Allergen Name Allergen Category Reaction Reaction Severity Criticality Documentation Date Start Date Code Code System Note Provider Name and Address Organization Details Recorded Time 54370 Penicilli n Not available anaphylax is mild Not available 12/28/2024 93325 RxNorm [facility] 5 11:04:31 47645 cat dander environme nt Not available Not available Not available 12/28/2024 97523 UNK [facility] 5 11:15:32 Medications Name Sig Start Date Stop Date Status Note LastModified by Organization Details LastModified Time sotalol 160 mg tablet TAKE 1 TABLET BY MOUTH TWICE A DAY NEEDDS APPOINTME NT FOR FURTHER REFILLS active Not Available Not Available No t Available sertraline 100 mg tablet TAKE 1 TABLET BY MOUTH DAILY active Not Available Not Available No t Available estradiol 0.01% (0.1 mg/gram) vaginal cream INSERT 1 GRAM EVERY DAY VAGINALLY AT BEDTIME active Not Available Not Available No t Available sertraline 50 mg tablet TAKE ONE TABLET B Y MOUTH ONCE DAILY 12/28 completed Not Available Not Available Not Available clobetasol 0.05 % lotion APPLY TOPICALLY DAILY active Not Available Not Available No t Available rosuvastati n 10 mg tablet TAKE 1 TABLET BY MOUTH EVERY DAY AT BEDTIME active Not Available Not Available No t Available 24 Hour Allergy Relief active Not Available Not Available Not Available Vitals Date Recorded Body weight Body mass index (BMI) Body height Systolic And Diastolic Provider Name and Address Organization Details Last Updated DateTime 12/28/2024 96276.84 g 31 kg/m2 172.72 cm 115/68 mm[Hg] Leti Toro [facility] 12/28/2024 11:15:20 Date Recorded Body height Body mass index (BMI) Body weight Systolic And Diastolic Provider Name and Address Organization Details Last Updated DateTime 03/05/2025 172.72 cm 30.5 kg/m2 22730.35 g 131/63 mm[Hg] Courtneynicanor Moraney [facility] 03/05/2025 17:28:12 Social History Question Answer Notes LastModified by Organizat ion Details LastModified Time Tobacco Smoking Status Never Smoker [email or web address] 12/28/2024 11:19:26 Do You Have An Advance Directive? No Information n ot available 12/28/2024 How Many Years Have You Consumed Alcohol? 50 [email or web address] Information not available 12/28/2024 Are You Blind Or Do You Have Difficulty Seeing? No [email or web address] Information n ot available 12/28/2024 What Is Your Level Of Caffeine Consumption? Moderate Information not available 12/28/2024 How Much Tobacco Do You Chew? None [email or web address] Information not available 12/28/2024 In The 14 Days Before Symptom Onset, Have You Had Close Contact With A Laboratory-confirm ed COVID-19 While That Case Was Ill? No [email or web address] Information n ot available 12/28/2024 In The 14 Days Before Symptom Onset, Have You Had Close Contact With A Person Who Is Under Investigation For COVID-19 While That Person Was Ill? No [email or web address] Information not available 12/28/2024 Have You Been To An Area Known To Be High Risk For COVID-19? No [email or web address] Information not available 12/28/2024 Are You Deaf Or Do You Have Serious Difficulty Hearing? No Information not available 12/28/2024 What Type Of Diet Are You Following? REGULAR [email or web address] Information n ot available 12/28/2024 What Is The Highest Grade Or Level Of School You Have Completed Or The Highest Degree You Have Received? [id number] Information not available 12/28/2024 Are There Any Guns Present In Your Home? No [email or web address] Information not available 12/28/2024 Do You Use Protection During Sex? No [email or web address] Information not available 12/28/2024 Do You Use Your Seat Belt Or Car Seat Routinely? Yes [email or web address] Information not available 12/28/2024 Are You Sexually Active? Yes [email or web address] Information not available 12/28/2024 Do You Have Smoke And Carbon Monoxide Detectors In Your Home? Yes [email or web address] Information not available 12/28/2024 How Much Tobacco Do You Smoke? No [email or web address] Information not available 12/28/2024 Do You Use Sunscreen Routinely? Yes [email or web address] Information not available 12/28/2024 Have You Used IV Drugs? No [email or web address] Information not available 12/28/2024 Do You Have Difficulty Walking Or Climbing Stairs? No [email or web address] Information not available 12/28/2024 Sex: Unknown Functional Status Question Answer Note LastModified by Organizat ion Details LastModified Time Do you use any illicit or recreational drugs? No Information not available 12/28/2024 What is your level of alcohol consumption? Moderate [email or web address] Information not available 12/28/2024 Are you currently employed? Yes Information not available 12/28/2024 Are you able to walk? YESWOREST [email or web address] Information not available 12/28/2024 Are you able to care for yourself? 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 No [email or web address] Information not available 12/28/2024 What is your exercise level? Occasional [email or web address] Information not available 12/28/2024 Mental Status Question Answer Note LastModified by Organization D etails LastModified Time Do you feel stressed (tense, restless, nervous, or anxious, or unable to sleep at night)? [id number] [email or web address] Information not available 12/28/2024 Family History Relationship Description Onset Age of this Age Resolved Age Notes LastModified by Organization Details LastModified Time Paternal Grandmother Depressive disorder [email or web address] Not available 2024 11:04:31 Mother Malignant neoplasm of ovary [email or web address] Not available 2024 16:41:34 Mother Heart disease [email or web address] Not available 2024 11:04:31 Mother Diabetes mellitus [email or web address] Not available 2024 11:04:31 Son Depressive disorder [email or web address] Not available 2024 11:04:31 Father Disorder of lung [email or web address] Not available 2024 11:04:31 Father Depressive disorder [email or web address] Not available 2024 11:04:31 Medical History Condition Response Anxiety Disorder Y Heart Problems Y Breast Cancer Y Gynecological History Statement/Question Response Abnormal Pap N Date of Last Mammogram Date of LMP 08/16/2002 N On BCP's at Conception? N STIs/STDs N Was last menstrual period normal Y HPV Vaccine N Duration of Flow (days) 5 Current Control Method Menopause Age at First Child 30 If Post Menopausal, Age at Menopause 52 Date of Last Colonoscopy Frequency of Cycle (Q days) 28 Most Recent Bone Density Sexually Active? N Date of DEXA bone scan Age of first menstrual cycle 15 Date of Last Pap Smear Sexual Problems? Y LMP Definite N Obstetrics History GPAL:G 4 P 3 0 1 3 Type Value Full Term 3 Spontaneous 1 Living 3 Total 4 Past Encounters Encounter ID Performer Location Encounter Start Date Encounter Closed Date Diagnosis/Indication Diagnosis SNOMED-CT Code Diagnosis ICD10 Code Diagnosis Note [id number] COSME CHANEL MD [facility] [address] [address] 12/28/2024 11:00:35 01/04/2025 14:30:45 Atrophic vaginitis 55086046 N95.2 - patient reports dyspareuni a with insertion; no bleeding- no pelvic pain outside of intercours e- exam with significan t atrophy of vulva and vagina- will start estradiol cream nightly x1 month, then can decrease to 1-2 times per week for maintenanc e- discussed low absorption rate of topical estrogen and safety in breast cancer Gynecologi c examination 61690338 Z01.419 Well woman care- Cervical cancer screening: Pap smear obtained today, will follow up on the results with the patient as they become available- Breast cancer screening: mammogram completed- HPV immunizati on: does not qualify- STD testing: declined- hereditary cancer screening: does not qualify for testing [id number] GRISELDA Odom [facility] [address] [address] 03/05/2025 16:41:23 03/08/2025 05:01:21 Screening mammography 83016384 Z12.31 order given for updated screening mammogram Atrophic vaginitis 75731 000 N95.2 improved with vaginal estrogen creamdesir es to continue this therapyr/b /a reviewedve g based moisturize r routine discussedq uestions answeredRT C for WWE or sooner if needed Time spent in visit is a total of 20 mins with at least 50% of visit consisting of counseling and review of plan of care. Health Concerns Section Related Observation LastModified by Organization Detai ls LastModified Time None Recorded Concern Status LastModified by Organization Details LastModified Time None Recorded Advance Directives Directive N: Payers Insurance Date Sequence Insurance Name Policy Number Policy Dangelo Covered Member ID Dangelo Member ID Guarantor Name 03/08/2025 1 [facility] [id number] Bernardo Nino [id number] Bernardo Nino Notes Date Note Type Note Provider Name and Address Organization Details Recorded Time 12/28/2024 text/html Presents today f or her annual well-woman exam.Denies abnormal vaginal discharge. She is not sexually active due to dyspareunia that has been longstanding. She has not noticed any changes or masses in her breasts. Up to date on mammograms. Hx of breast cancer in 2001, underwent chemo/radiation. Normal mammograms since that time. Family hx of ovarian cancer in mother in 60s and maternal grandmother with pancreatic cancer in her 70s. Menopausal, no PMB. No hx of abnormal pap smears. COSME CHANEL MD [address], [place], [address], [facility] 01/04/2025 08:48:20 03/05/2025 text/html 74yopresents for med checkstarted on vaginal estrogen cream by Dr. Chanel on 12/28/2024has noticed significant improvement in dryness/irritation , desires to continue this therapy GRISELDA Odom [address], [place], [address], [facility] 03/07/2025 12:01:06 OBGyn Episode Ob Episode Information Episode Created Date Number of Fetuses Patient Bloodtype Patient rh Status Prepregnancy Weight lbs Domestic Partner Domestic Partner Phone Father Name String Cutter Status 12/28/19 25 1 CLOSED Fetus Data First Name Last Name Admitted to NICU Weight (g) Sex Living Outcome Pediatric Complications Fetus ID Race Codes Race Delivery Type [id number] Primary Jd Calculation Initial Jd Date Initial Exam Date Initial Exam Provider Initial Ultrasound Date Last Menstrual Period Date Ultra Sound Weeks Gestation 0 Eighteen To Twenty Week Jd Update Ultra Sound Date Fundal Height At Umbil Quickening Date Ultra Sound Latest Weeks Gestation Final Jd Confirmed By Final Jd Confirmed Date Final Jd Date Ultra Sound Latest Days Gestation 0 0 Menstrual History Last Menstrual Date Menses Monthly On Bcp Conception Prior Menses Frequency Hcg Plus Date Menarche Onset Age Delivery Information Delivery Date Delivery Type Labor Anesthesia Weeks Gestation Incision Type Labor Labor Length Hrs Delivered By Post Complications Tubal Sterilization Discharge Date Comments 1 Discharge Information Feeding Method Contraceptive Method Maternal HG B and HCT Levels Ob Episode Information Episode Created Date Number of Fetuses Patient Bloodtype Patient rh Status Prepregnancy Weight lbs Domestic Partner Domestic Partner Phone Father Name String Cutter Status 12/28/19 25 1 CLOSED Fetus Data First Name Last Name Admitted to NICU Weight (g) Sex Living Outcome Pediatric Complications Fetus ID Race Codes Race Delivery Type , Spontane ous [id number] Jd Calculation Initial Jd Date Initial Exam Date Initial Exam Provider Initial Ultrasound Date Last Menstrual Period Date Ultra Sound Weeks Gestation 0 Eighteen To Twenty Week Jd Update Ultra Sound Date Fundal Height At Umbil Quickening Date Ultra Sound Latest Weeks Gestation Final Jd Confirmed By Final Jd Confirmed Date Final Jd Date Ultra Sound Latest Days Gestation 0 0 Menstrual History Last Menstrual Date Menses Monthly On Bcp Conception Prior Menses Frequency Hcg Plus Date Menarche Onset Age Delivery Information Delivery Date Delivery Type Labor Anesthesia Weeks Gestation Incision Type Labor Labor Length Hrs Delivered By Post Complications Tubal Sterilization Discharge Date Comments 5 Discharge Information Feeding Method Contraceptive Method Maternal HG B and HCT Levels Ob Episode Information Episode Created Date Number of Fetuses Patient Bloodtype Patient rh Status Prepregnancy Weight lbs Domestic Partner Domestic Partner Phone Father Name String Cutter Status 12/28/19 1 CLOSED Fetus Data First Name Last Name Admitted to NICU Weight (g) Sex Living Outcome Pediatric Complications Fetus ID Race Codes Race Delivery Type [id number] Primary Jd Calculation Initial Jd Date Initial Exam Date Initial Exam Provider Initial Ultrasound Date Last Menstrual Period Date Ultra Sound Weeks Gestation 0 Eighteen To Twenty Week Jd Update Ultra Sound Date Fundal Height At Umbil Quickening Date Ultra Sound Latest Weeks Gestation Final Jd Confirmed By Final Jd Confirmed Date Final Jd Date Ultra Sound Latest Days Gestation 0 0 Menstrual History Last Menstrual Date Menses Monthly On Bcp Conception Prior Menses Frequency Hcg Plus Date Menarche Onset Age Delivery Information Delivery Date Delivery Type Labor Anesthesia Weeks Gestation Incision Type Labor Labor Length Hrs Delivered By Post Complications Tubal Sterilization Discharge Date Comments 3 Discharge Information Feeding Method Contraceptive Method Maternal HG B and HCT Levels Ob Episode Information Episode Created Date Number of Fetuses Patient Bloodtype Patient rh Status Prepregnancy Weight lbs Domestic Partner Domestic Partner Phone Father Name String Cutter Status 12/28/19 1 CLOSED Fetus Data First Name Last Name Admitted to NICU Weight (g) Sex Living Outcome Pediatric Complications Fetus ID Race Codes Race Delivery Type [id number] Primary Jd Calculation Initial Jd Date Initial Exam Date Initial Exam Provider Initial Ultrasound Date Last Menstrual Period Date Ultra Sound Weeks Gestation 0 Eighteen To Twenty Week Jd Update Ultra Sound Date Fundal Height At Umbil Quickening Date Ultra Sound Latest Weeks Gestation Final Jd Confirmed By Final Jd Confirmed Date Final Jd Date Ultra Sound Latest Days Gestation 0 0 Menstrual History Last Menstrual Date Menses Monthly On Bcp Conception Prior Menses Frequency Hcg Plus Date Menarche Onset Age Delivery Information Delivery Date Delivery Type Labor Anesthesia Weeks Gestation Incision Type Labor Labor Length Hrs Delivered By Post Complications Tubal Sterilization Discharge Date Comments 4 Discharge Information Feeding Method Contraceptive Method Maternal HG B and HCT Levels
== END 2025-05-16 15:48 | disposition home or self-care (01) ==
LOC: ANHGOSHLAB 15:49
PROVIDERS: PCP Family Medicine; Visit Provider Family Medicine
DX: N39.0 Urinary tract infection, site not specified (principal)
CPT/HCPCS: 87086